=== PATIENT | female | born 1950 | race Caucasian/White ===

== ENCOUNTER → 2017-04-16 | Outpatient (CLI) | payer MEDICAID ==
[~2017-04-16] MED LIST: ADVAIR 250/28 DISKU1 IH; ALAVERT10 MG PO; CALCIUM 600600 M2 PO; CALCIUM WITH VI1 TAB PO; CARDI-OMEGA1000 MG PO; CEPHALEXIN500 M1 PO; CYMBALTA60 MG PO; FLEXERIL5 MG PO; GLUCOPHAGE500 MG/TAB PO; METFORMIN500 MG PO; MULTI VITAMINS1 TAB PO; NAPROSYN500 MG PO; NORCO 325 MG-51 TAB PO; PROAIR; PROAIR HFA0.09 MG/AC IH; RANITIDINE300 MG PO; TRAZODONE100 MG PO; ZOCOR 20MG20 MG PO
== END ==
LOC: MC.RAD 09:32
DX: Z12.31 Encounter for screening mammogram for malignant neoplasm of breast (principal)

== ENCOUNTER → 2018-05-06 | Outpatient (CLI) | payer MEDICAID | LOC: MC.RAD 08:59 | DX: Z12.31 Encounter for screening mammogram for malignant neoplasm of breast (principal) ==

== ENCOUNTER 2018-05-20 13:40 | Emergency (ER) | payer MEDICAID ==
[~2018-05-20] VITALS: Ht 170.2 cm; Wt 73.2 kg
[2018-05-20 13:40] VITALS: TEMP 98.4
[2018-05-20 15:08] LABS: COLLECTION METHOD CLEAN CATCH
[2018-05-20 15:14] LABS: BASO % 0.4 % (0.0-2.0); EOS # 0.3 (0.0-0.7); EOS % 4.4 % (0-4.0); GRAN # 4.6 (1.4-6.5); GRAN % 63.1 % (42.2-75.2); HEMOGLOBIN 12.5 g/dl (12.5-16.0); LYMPH # 1.4 (1.2-3.4); LYMPH % 19.7 % (20.0-51.0); MEAN CELL VOLUME 89 fl (80.0-100.0); MEAN CORPUSCULAR HEMOGLOBIN 31 pg (27.0-31.0); MEAN CORPUSCULAR HGB CONC 35 g/dl (33.0-37.0); MEAN PLATELET VOLUME 12.5 fl (7.4-10.4); MONO # 0.9 (0.1-0.6); PLATELET COUNT 165 K/mm3 (130-400); RED BLOOD COUNT 4.02 M/mm3 (4.10-5.30); REDCELL DISTRIBUTION WIDTH-CV 19.3 % (11.5-14.5)
[2018-05-20 15:15] LABS: HEMATOCRIT 35.6 % (37.0-47.0)
[2018-05-20 15:20] LABS: MUCOUS Present /lpf; PH 5 (5-8); URINE APPEARANCE Cloudy; URINE BACTERIA Rare /hpf; URINE BILIRUBIN Positive (NEGATIVE); URINE BLOOD Negative (NEGATIVE); URINE COLOR Amber; URINE GLUCOSE Negative (NEGATIVE); URINE KETONE Negative (NEGATIVE); URINE LEUKOCYTE ESTERASE 1+ (NEGATIVE); URINE NITRATE Negative (NEGATIVE); URINE PROTEIN(semi-quant) Negative (NEGATIVE); URINE UROBILINOGEN >=4.0 mg/dL (NEGATIVE)
[2018-05-20 15:21] LABS: ALBUMIN 4.1 gm/dL (3.5-5.0); BILIRUBIN,TOTAL 18.3 mg/dL (0.0-1.0); C-REACTIVE PROTEIN 2.5 mg/dL (0.0-0.9); CALCIUM 9.6 mg/dL (8.4-10.2); CREATININE, serum 0.78 mg/dL (0.52-1.25); TOTAL PROTEIN 7.8 gm/dL (6.4-8.2)
[2018-05-20] MEDS ORDERED: LEVAQUIN 5500 MG/TA1 PO (16:27)
[2018-05-20 17:11] VITALS: BP 121/78; PULSE 75
== END 2018-05-20 17:11 | disposition home or self-care (01) ==
LOC: COL.ER 13:40
PROVIDERS: Family Medicine
DX: K83.1 Obstruction of bile duct (principal); E11.9 Type 2 diabetes mellitus without complications; I10 Essential (primary) hypertension; I25.10 Atherosclerotic heart disease of native coronary artery without angina pectoris; N28.89 Other specified disorders of kidney and ureter; Z79.84 Long term (current) use of oral hypoglycemic drugs
CPT/HCPCS: J2405; J7030; Q9967

== ENCOUNTER 2018-05-22 11:07 | Day surgery (SDC) | payer MEDICAID ==
[~2018-05-22] VITALS: Ht 170.2 cm; Wt 73.6 kg
[~2018-05-22 11:07] MED LIST changes: +LEVAQUIN 5500 MG/TA1 PO
[2018-05-22 12:01] VITALS: BP 119/79; PULSE 95; TEMP 97.2
[2018-05-22 13:40] VITALS: BP 119/73; PULSE 100; TEMP 97.7
[2018-05-22 13:55] VITALS: BP 89/73; PULSE 84
[2018-05-22 14:10] VITALS: BP 109/55; PULSE 89
[2018-05-22 14:25] VITALS: BP 112/59; PULSE 88; TEMP 97.7
[2018-05-22 17:03] VITALS: BP 89/65; PULSE 101
== END 2018-05-22 15:50 | disposition home or self-care (01) ==
LOC: SDCO 11:07
DX: K83.1 Obstruction of bile duct (principal); K83.8 Other specified diseases of biliary tract; R17 Unspecified jaundice
CPT/HCPCS: OP; C1769; C2625; J7030; Q9967

== ENCOUNTER 2018-06-10 17:17 | Emergency (ER) | payer MEDICAID ==
[~2018-06-10] VITALS: Ht 167.6 cm; Wt 73.6 kg
[2018-06-10 17:20] VITALS: TEMP 98.1
[2018-06-10 17:59] LABS: BASO % 0.2 % (0.0-2.0); EOS # 0.3 (0.0-0.7); EOS % 3.5 % (0-4.0); GRAN # 5.2 (1.4-6.5); GRAN % 59.2 % (42.2-75.2); LYMPH # 2.3 (1.2-3.4); LYMPH % 26.5 % (20.0-51.0); MEAN CELL VOLUME 93 fl (80.0-100.0); MEAN CORPUSCULAR HEMOGLOBIN 31 pg (27.0-31.0); MEAN CORPUSCULAR HGB CONC 33 g/dl (33.0-37.0); MEAN PLATELET VOLUME 9.9 fl (7.4-10.4); MONO # 0.9 (0.1-0.6); MONO % 10.4 % (1.7-9.3); PLATELET COUNT 186 K/mm3 (130-400); RED BLOOD COUNT 3.58 M/mm3 (4.10-5.30); REDCELL DISTRIBUTION WIDTH-CV 16.1 % (11.5-14.5)
[2018-06-10 18:02] LABS: HEMATOCRIT 33.4 % (37.0-47.0)
[2018-06-10 18:05] LABS: COLLECTION METHOD CLEAN CATCH
[2018-06-10 18:11] LABS: MUCOUS Present /lpf; PH 5 (5-8); SQUAMOUS EPITHELIAL 0-2 /hpf; URINE APPEARANCE Clear; URINE BACTERIA None Seen /hpf; URINE BILIRUBIN Negative (NEGATIVE); URINE BLOOD Negative (NEGATIVE); URINE COLOR Yellow; URINE GLUCOSE Negative (NEGATIVE); URINE KETONE Negative (NEGATIVE); URINE LEUKOCYTE ESTERASE Trace (NEGATIVE); URINE NITRATE Negative (NEGATIVE); URINE PROTEIN(semi-quant) Negative (NEGATIVE); URINE RBC 0-2 /hpf; URINE UROBILINOGEN Negative (NEGATIVE)
[2018-06-10 18:15] LABS: ALBUMIN 3.7 gm/dL (3.5-5.0); BILIRUBIN,TOTAL 1.8 mg/dL (0.0-1.0); C-REACTIVE PROTEIN 0.7 mg/dL (0.0-0.9); CALCIUM 9.2 mg/dL (8.4-10.2); CREATININE, serum 0.84 mg/dL (0.52-1.25); POTASSIUM 3.9 mmol/L (3.4-5.0); TOTAL PROTEIN 6.7 gm/dL (6.4-8.2)
[2018-06-10 19:06] VITALS: BP 134/74; PULSE 96
== END 2018-06-10 19:14 | disposition home or self-care (01) ==
LOC: COL.ER 17:17
PROVIDERS: Emergency Medicine
DX: R74.8 Abnormal levels of other serum enzymes (principal); E11.9 Type 2 diabetes mellitus without complications; Z90.710 Acquired absence of both cervix and uterus; F17.210 Nicotine dependence, cigarettes, uncomplicated; K21.9 Gastro-esophageal reflux disease without esophagitis; I25.2 Old myocardial infarction